=== PATIENT | male | born 1955 | race Caucasian/White ===

== ENCOUNTER 2021-07-01 16:17 | Inpatient (IN) | payer MEDICARE ==
[2021-07-01] MEDS ORDERED: Acetaminophen 325 MG TAB PO PRN (20:05)
[2021-07-01] MEDS ORDERED: Ondansetron PF 4 MG/2 ML Vial IVP PRN (20:05)
[2021-07-01] MEDS ORDERED: Potassium Chloride 20 MEQ TAB PO SCH (20:15)
[2021-07-01 20:54] LABS: Anion Gap 13 mmol/L (10-20); BUN (Urea Nitrogen) 12 mg/dL (8.4-25.7); Calc. Creatinine Clearance 0 mL/min (70-130); Calcium 9.3 mg/dL (7.8-10.44); Carbon Dioxide 31 mmol/L (23-31); Chloride 90 mmol/L (98-107); Glucose 149 mg/dL (80-115); Potassium 3.7 mmol/L (3.5-5.1); Sodium 130 mmol/L (136-145)
[2021-07-01 21:51] VITALS: BMI 32.5
[2021-07-02] MEDS: Famotidine 20 MG TAB PO SCH ×3 (00:14→21:11)
[2021-07-02] MEDS ORDERED: Albuterol Sulfate 2.5 mg/3 ml Neb NEB PRN (01:04)
[2021-07-02] MEDS ORDERED: Albuterol 200 PUFF (6.7GM INHALER) INH PRN (01:09)
[2021-07-02 05:45] LABS: #Lymphocytes 0.6 thou/uL (1.20-3.40); #Monocytes 0.2 thou/uL (0.11-0.59); #Neutrophils 3.3 thou/uL (1.40-6.50); %Eosinophils 0.1 % (0.0-10.0); %Lymphocytes 14.7 % (21.0-51.0); %Monocytes 4.3 % (0.0-10.0); %Neutrophils 80.9 % (42.0-75.0); Hemoglobin 15.7 g/dL (14.0-18.0); Mean Corpuscular HGB CONC 34.6 g/dL (32.0-36.0); Mean Corpuscular Hemoglobin 33.4 pg (27.0-31.0); Mean Corpuscular Volume 96.5 fL (78.0-98.0); Mean Platelet Volume 8.7 fL (7.4-10.4); Platelet Count 152 thou/uL (130-400); RBC Distribution Width 11.7 % (11.5-14.5); Red Blood Cell (RBC) Count 4.69 mill/uL (4.70-6.10); White Blood Cell (WBC) Count 4.1 thou/uL (4.8-10.8)
[2021-07-02 06:21] LABS: Anion Gap 12 mmol/L (10-20); BUN (Urea Nitrogen) 13 mg/dL (8.4-25.7); Calc. Creatinine Clearance 148 mL/min (70-130); Carbon Dioxide 31 mmol/L (23-31); Chloride 92 mmol/L (98-107); Glucose 139 mg/dL (80-115); Magnesium 1.9 mg/dL (1.6-2.6); Potassium 3.6 mmol/L (3.5-5.1); Sodium 131 mmol/L (136-145)
[2021-07-02] MEDS: Enoxaparin Sodium 40 MG/0.4 ML SYRINGE SC SCH ×2 (07:57→21:11)
[2021-07-02] MEDS: Zinc Sulfate 220 MG CAP PO SCH (07:58)
[2021-07-02] MEDS: Dexamethasone 10 MG/ML VIAL SLOW IVP SCH (07:58)
[2021-07-02] MEDS: Ascorbic Acid 500 mg Chewable Tablet PO SCH (07:58)
[2021-07-02] MEDS ORDERED: Iopamidol-370 76% 500 ML 1 ML ONE (09:48)
[2021-07-02] MEDS ORDERED: REMDESIVIR 200 MG in Sodium Chloride 0.9% 250 ML 210 ML IV SCH (12:30)
[2021-07-02 13:44] LABS: Prothrombin Time 12.8 sec (12.0-14.7)
[2021-07-02] MEDS ORDERED: Amlodipine 10 MG TAB PO SCH (14:00)
[2021-07-02] MEDS: Lisinopril 20 MG TAB PO SCH (21:11)
[2021-07-03 06:06] LABS: #Monocytes 0.9 thou/uL (0.11-0.59); #Neutrophils 8.6 thou/uL (1.40-6.50); %Basophils 0.1 % (0.0-1.0); %Eosinophils 0.1 % (0.0-10.0); %Lymphocytes 9.7 % (21.0-51.0); %Monocytes 8.4 % (0.0-10.0); %Neutrophils 81.8 % (42.0-75.0); Hemoglobin 16.6 g/dL (14.0-18.0); Mean Corpuscular Volume 97.2 fL (78.0-98.0); Mean Platelet Volume 8.6 fL (7.4-10.4); Platelet Count 204 thou/uL (130-400); RBC Distribution Width 11.8 % (11.5-14.5); Red Blood Cell (RBC) Count 5.19 mill/uL (4.70-6.10); White Blood Cell (WBC) Count 10.5 thou/uL (4.8-10.8)
[2021-07-03 06:25] LABS: Anion Gap 12 mmol/L (10-20); BUN (Urea Nitrogen) 13 mg/dL (8.4-25.7); Calc. Creatinine Clearance 153 mL/min (70-130); Calcium 9.1 mg/dL (7.8-10.44); Carbon Dioxide 31 mmol/L (23-31); Chloride 96 mmol/L (98-107); Glucose 117 mg/dL (80-115); Magnesium 1.9 mg/dL (1.6-2.6); Potassium 3.4 mmol/L (3.5-5.1); Sodium 136 mmol/L (136-145)
[2021-07-03] MEDS: REMDESIVIR 100 MG in Sodium Chloride 0.9% 250 ML 230 ML IV SCH (08:23)
[2021-07-03] MEDS: Dexamethasone 10 MG/ML VIAL SLOW IVP SCH (08:23)
[2021-07-03] MEDS: Ascorbic Acid 500 mg Chewable Tablet PO SCH (08:23)
[2021-07-03] MEDS: Enoxaparin Sodium 40 MG/0.4 ML SYRINGE SC SCH ×2 (08:23→20:10)
[2021-07-03] MEDS: Famotidine 20 MG TAB PO SCH ×2 (08:23→20:10)
[2021-07-03] MEDS: Amlodipine 10 MG TAB PO SCH (08:24)
[2021-07-03] MEDS: Aspirin 325 MG TAB PO SCH (08:24)
[2021-07-03] MEDS: Zinc Sulfate 220 MG CAP PO SCH (08:24)
[2021-07-03] MEDS: Furosemide 20 MG TAB PO SCH (08:24)
[2021-07-03] MEDS ORDERED: Amlodipine 10 MG TAB PO SCH (09:00)
[2021-07-03] MEDS ORDERED: Senokot 8.6 MG TAB PO PRN (19:43)
[2021-07-03] MEDS: Lisinopril 20 MG TAB PO SCH (20:10)
[2021-07-04 05:49] LABS: #Lymphocytes 1.3 thou/uL (1.20-3.40); #Monocytes 1.1 thou/uL (0.11-0.59); #Neutrophils 5.8 thou/uL (1.40-6.50); %Basophils 0.1 % (0.0-1.0); %Eosinophils 0.1 % (0.0-10.0); %Lymphocytes 15.5 % (21.0-51.0); %Monocytes 13.4 % (0.0-10.0); %Neutrophils 70.9 % (42.0-75.0); Hemoglobin 16.7 g/dL (14.0-18.0); Mean Corpuscular HGB CONC 34.2 g/dL (32.0-36.0); Mean Corpuscular Hemoglobin 33.1 pg (27.0-31.0); Mean Corpuscular Volume 96.9 fL (78.0-98.0); Mean Platelet Volume 8.7 fL (7.4-10.4); Platelet Count 201 thou/uL (130-400); RBC Distribution Width 11.9 % (11.5-14.5); Red Blood Cell (RBC) Count 5.03 mill/uL (4.70-6.10); White Blood Cell (WBC) Count 8.1 thou/uL (4.8-10.8)
[2021-07-04 06:16] LABS: ALT (SGPT) 39 U/L (8-55); AST (SGOT) 40 U/L (5-34); Albumin 3.4 g/dL (3.4-4.8); Alkaline Phosphatase 51 U/L (40-110); Anion Gap 13 mmol/L (10-20); BUN (Urea Nitrogen) 11 mg/dL (8.4-25.7); Bilirubin, Direct 0.2 mg/dL (0.1-0.3); Bilirubin, Total 0.5 mg/dL (0.2-1.2); Calc. Creatinine Clearance 158 mL/min (70-130); Carbon Dioxide 30 mmol/L (23-31); Chloride 92 mmol/L (98-107); Glucose 105 mg/dL (80-115); Magnesium 1.8 mg/dL (1.6-2.6); Potassium 3.4 mmol/L (3.5-5.1); Protein, Total 6.6 g/dL (5.8-8.1); Sodium 132 mmol/L (136-145)
[2021-07-04] MEDS: Amlodipine 10 MG TAB PO SCH (08:38)
[2021-07-04] MEDS: Ascorbic Acid 500 mg Chewable Tablet PO SCH (08:38)
[2021-07-04] MEDS: Aspirin 325 MG TAB PO SCH (08:38)
[2021-07-04] MEDS: Dexamethasone 10 MG/ML VIAL SLOW IVP SCH (08:39)
[2021-07-04] MEDS: Enoxaparin Sodium 40 MG/0.4 ML SYRINGE SC SCH ×2 (08:42→20:43)
[2021-07-04] MEDS: Zinc Sulfate 220 MG CAP PO SCH (08:46)
[2021-07-04] MEDS: REMDESIVIR 100 MG in Sodium Chloride 0.9% 250 ML 230 ML IV SCH (08:46)
[2021-07-04] MEDS: Famotidine 20 MG TAB PO SCH ×2 (08:46→20:43)
[2021-07-04] MEDS ORDERED: Potassium Chloride 20 MEQ TAB PO SCH (13:30)
[2021-07-04] MEDS: Lisinopril 20 MG TAB PO SCH (20:43)
[2021-07-04] MEDS: hydrALAZINE 25 MG TAB PO PRN (23:38)
[2021-07-05 07:04] LABS: ALT (SGPT) 42 U/L (8-55); AST (SGOT) 33 U/L (5-34); Albumin 3.2 g/dL (3.4-4.8); Alkaline Phosphatase 50 U/L (40-110); Anion Gap 13 mmol/L (10-20); BUN (Urea Nitrogen) 15 mg/dL (8.4-25.7); Bilirubin, Direct 0.2 mg/dL (0.1-0.3); Bilirubin, Total 0.4 mg/dL (0.2-1.2); Calc. Creatinine Clearance 158 mL/min (70-130); Calcium 9.1 mg/dL (7.8-10.44); Carbon Dioxide 29 mmol/L (23-31); Chloride 99 mmol/L (98-107); Glucose 104 mg/dL (80-115); Potassium 3.8 mmol/L (3.5-5.1); Protein, Total 6.4 g/dL (5.8-8.1); Sodium 137 mmol/L (136-145)
[2021-07-05] MEDS: Amlodipine 10 MG TAB PO SCH (08:33)
[2021-07-05] MEDS: Ascorbic Acid 500 mg Chewable Tablet PO SCH (08:33)
[2021-07-05] MEDS: Aspirin 325 MG TAB PO SCH (08:33)
[2021-07-05] MEDS: Dexamethasone 10 MG/ML VIAL SLOW IVP SCH (08:34)
[2021-07-05] MEDS: Zinc Sulfate 220 MG CAP PO SCH (08:34)
[2021-07-05] MEDS: REMDESIVIR 100 MG in Sodium Chloride 0.9% 250 ML 230 ML IV SCH (08:34)
[2021-07-05] MEDS: Famotidine 20 MG TAB PO SCH ×2 (08:34→20:05)
[2021-07-05] MEDS: Enoxaparin Sodium 40 MG/0.4 ML SYRINGE SC SCH ×2 (08:34→20:04)
[2021-07-05] MEDS: Furosemide 20 MG TAB PO SCH (08:34)
[2021-07-05] MEDS: hydrALAZINE 25 MG TAB PO PRN (20:05)
[2021-07-05] MEDS: Lisinopril 20 MG TAB PO SCH (20:05)
[2021-07-06 06:03] LABS: ALT (SGPT) 54 U/L (8-55); AST (SGOT) 36 U/L (5-34); Albumin 3.2 g/dL (3.4-4.8); Alkaline Phosphatase 52 U/L (40-110); Anion Gap 10 mmol/L (10-20); BUN (Urea Nitrogen) 15 mg/dL (8.4-25.7); Bilirubin, Direct 0.2 mg/dL (0.1-0.3); Bilirubin, Total 0.5 mg/dL (0.2-1.2); Calc. Creatinine Clearance 169 mL/min (70-130); Calcium 8.9 mg/dL (7.8-10.44); Carbon Dioxide 30 mmol/L (23-31); Chloride 97 mmol/L (98-107); Glucose 103 mg/dL (80-115); Potassium 3.3 mmol/L (3.5-5.1); Protein, Total 6.2 g/dL (5.8-8.1); Sodium 134 mmol/L (136-145)
[2021-07-06] MEDS: Amlodipine 10 MG TAB PO SCH (08:46)
[2021-07-06] MEDS: Aspirin 325 MG TAB PO SCH (08:47)
[2021-07-06] MEDS: REMDESIVIR 100 MG in Sodium Chloride 0.9% 250 ML 230 ML IV SCH (08:47)
[2021-07-06] MEDS: Enoxaparin Sodium 40 MG/0.4 ML SYRINGE SC SCH (08:47)
[2021-07-06] MEDS: Dexamethasone 10 MG/ML VIAL SLOW IVP SCH (08:47)
[2021-07-06] MEDS: Ascorbic Acid 500 mg Chewable Tablet PO SCH (08:47)
[2021-07-06] MEDS: Famotidine 20 MG TAB PO SCH (08:47)
[2021-07-06] MEDS: Zinc Sulfate 220 MG CAP PO SCH (08:48)
[2021-07-06] MEDS: hydrALAZINE 25 MG TAB PO PRN (08:50)
[2021-07-06 12:03] VITALS: BP 178/100; TEMP 97.7
== END 2021-07-06 15:29 | disposition home or self-care (01) | DRG 177 ==
LOC: T4-A 16:17 → 2SW 19:51 → OBSVTOIN 07-02 08:08
PROVIDERS: ADMIT Family Medicine; ATTEND Internal Medicine
PROC: XW033E5 Introduction of Remdesivir Anti-infective into Peripheral Vein, Percutaneous Approach, New Technology Group 5 (ICD-10-PCS; principal; 2021-07-02)
PROC: 3E0333Z Introduction of Anti-inflammatory into Peripheral Vein, Percutaneous Approach (ICD-10-PCS; 2021-07-02)
PROC: 8E0ZXY6 Isolation (ICD-10-PCS; 2021-07-02)
DX: U07.1 COVID-19 (principal); J12.82 Pneumonia due to coronavirus disease 2019; J96.01 Acute respiratory failure with hypoxia; J44.0 Chronic obstructive pulmonary disease with (acute) lower respiratory infection; E87.1 Hypo-osmolality and hyponatremia; E87.6 Hypokalemia; I10 Essential (primary) hypertension; E87.8 Other disorders of electrolyte and fluid balance, not elsewhere classified; Z88.0 Allergy status to penicillin; Z79.899 Other long term (current) drug therapy; Z79.82 Long term (current) use of aspirin; Z98.890 Other specified postprocedural states; Z87.891 Personal history of nicotine dependence
CPT/HCPCS: 36415; 71275; 80048; 80076; 83735; 83930; 83935; 84300; 85025; 85379; 85610; 86140; G0378; J1100; J1650; J7050; Q9967